=== PATIENT | female | born 1975 ===

== ENCOUNTER → 2021-10-19 09:14 | Outpatient (CLI) | payer BC, SELFPAY | PROVIDERS: Visit Provider Nurse Practitioner Family | DX: R30.0 Dysuria (principal) | CPT/HCPCS: 87086; 87210 ==

== ENCOUNTER 2021-10-20 17:24 | Emergency (ER) | payer BC, SELFPAY ==
[2021-10-20 17:27] VITALS: BP 127/85; PULSE 80; RESP 20; TEMP 37.2; O2SAT 98
[2021-10-20 21:15] LABS: Bacteria Urine Many (>30); Culture Indicated Urine Cult Not Indicated; Mucus Urine 1+ (Negative); RBC Urine 10-30/HPF (0-5/HPF); Squamous Epithelial Cell Urine 10-30 /HPF (0-5/HPF); WBC Urine 5-10/HPF (0-5/HPF)
--- NOTE | 2021-10-20 21:42 | ED_ITS ---
HPI - General Adult General Chief complaint: Vaginal Bleeding Stated complaint: UTI BLEEDING Time Seen by Provider: 10/20/21 21:19 Source: patient Mode of arrival: Ambulatory Limitations: no limitations History of Present Illness HPI narrative: 45-year-old female. Not on control who is here for evaluation of vaginal bleeding. She states that several days ago she started to have urinary symptoms. She was started on an antibiotic. She thinks it was Macrobid. She took it until completion. Her urinary symptoms have improved however she states that within the past 24 hours she now has vaginal bleeding. She is also having some uterine cramping. No diarrhea. No vomiting. No fevers. She states that it is approximately usp through her menstrual cycle. She is normally very regular with 2-3 days of vaginal bleeding every 28 days. Related Data Home Medications Medication Instructions Recorded Confirmed No Known Home Medications 10/19/21 10/19/21 Allergies Allergy/AdvReac Type Severity Reaction Status Date / Time No Known Drug Allergies Allergy Unverified 10/19/21 09:20 Review of Systems Constitutional Constitutional: Reports system reviewed and no additional complaints, except as documented Gastrointestinal Gastrointestinal: Reports system reviewed and no additional complaints, except as documented Genitourinary Genitourinary: Reports system reviewed and no additional complaints, except as documented Integumentary/Breasts Skin/Breast: Reports system reviewed and no additional complaints, except as documented Hematologic/Lymphatic On Anticoagulants: No Patient History Medical History Healthy adult Social History Smoking Status: Never smoker Smoking Status: Never smoker Exam Initial Vital Signs Initial Vital Signs: Vital Signs Temperature 98.9 F 10/20/21 17:27 Pulse Rate 80 10/20/21 17:27 Respiratory Rate 20 10/20/21 17:27 Blood Pressure 127/85 10/20/21 17:27 Pulse Oximetry 98 10/20/21 17:27 Oxygen Delivery Method 10/20/21 17:27 HENND Head: normal to inspection and normocephalic Resp Effort & Inspection: normal respiratory effort Cardio Rate: regular rate Rhythm: regular rhythm GI Inspection: non-distended Palpation: tender (Suprapubic region) Neuro General: patient alert, patient awake and moves all extremities Course Orders Ordered: ED Orders 10/20/21 21:05 Urine Culture Stat Urine Microscopic Stat Vital Signs Vital signs: Vital Signs - 8 hr 10/20/21 17:27 Temperature 98.9 F Pulse Rate 80 Respiratory Rate 20 Blood Pressure 127/85 Pulse Oximetry 98 Oxygen Delivery Method Room Air Medical Decision Making Lab Data Lab results reviewed: Yes I reviewed the patient's lab results. Labs: Lab Results 10/20/21 Range/Units 21:05 Urine RBC 10-30/hpf H (0-5/HPF) Urine WBC 5-10/hpf H (0-5/HPF) Ur Squamous Epith Cells 10-30 /hpf H (0-5/HPF) Urine Bacteria Many (>30) H (None) Urine Mucus 1+ H (Negative) Ur Culture Indicated? Cult not indicated Point of Care Testing Test Results Negative Urine Dip Bedside Urine Glucose Negative Bedside Urine Bilirubin - Negative Bedside Urine Ketone - Negative Urine Specific [place] 1.015 Bedside Urine Occult Blood +++ Bedside Urine pH 6.5 Bedside Urine Protein - Negative Bedside Urine Urobilinogen - Negative Bedside Urine Nitrite - Negative Bedside Urine Leukocytes +++ 500 Esterase Point of care testing: Point of Care Testing Test Results Negative Urine Dip Bedside Urine Glucose Negative Bedside Urine Bilirubin - Negative Bedside Urine Ketone - Negative Urine Specific [place] 1.015 Bedside Urine Occult Blood +++ Bedside Urine pH 6.5 Bedside Urine Protein - Negative Bedside Urine Urobilinogen - Negative Bedside Urine Nitrite - Negative Bedside Urine Leukocytes +++ 500 Esterase MDM Narrative Medical decision making narrative: Urinalysis today does have some findings consistent with a urinary tract infection but also has quite a few epi cells. A urine culture was pending at the time of discharge and we will wait until this results before switching take any new antibiotics. She does report vaginal bleeding. Her test was negative. She does have suprapubic tenderness. We did discuss obtaining an ultrasound today although a not convince that there is an emergent surgical issue that an ultrasound would help us with today. I did discuss this with the patient and her . After this discussion we will hold on any imaging studies for now. She understands and will wait for the urine culture to resolved before we do and antibiotics. She expressed understanding and agreement. Discharge Plan Departure Patient Disposition: Home Clinical Impression: Vaginal bleeding Instructions: DI for Vaginal Bleeding Activity Restrictions/Additional Instructions: We will contact you if we need to start antibiotics based on the culture has a results in the next couple days. I do recommend that you follow-up with an pack out operator provider. Return to the emergency department for any new or worsening symptoms like we discussed. Prescriptions: No Action No Known Home Medications Visit Report Forms: Patient Portal/API
== END 2021-10-20 22:30 | disposition home or self-care (01) ==
PROVIDERS: Emergency Provider Emergency Medicine
DX: N93.9 Abnormal uterine and vaginal bleeding, unspecified (principal)
CPT/HCPCS: 81003; 81015; 81025; 87086; 99282